=== PATIENT | female | born 1995 | race Hispanic/Latino ===

== ENCOUNTER 2020-04-24 10:46 | Emergency (ER) | payer SELFPAY ==
[~2020-04-24] VITALS: Ht 147.3 cm; Wt 56.7 kg
--- NOTE | 2020-04-24 11:21 | Diagnostic Imaging Report ---
X-ray chest PA and lateral History: Cough and chest pain Comparison: None Findings: Cardiomediastinal silhouettes, central airways, lung garcia, pleura, diaphragms, visualized skeleton, extrathoracic soft tissues and upper abdomen are all unremarkable. Impression: Normal exam. Signed by: Aston Gorman MD on 04/24/2020 11:18 AM
[2020-04-24] MEDS ORDERED: KETOROLAC TROMETHAMINE 60 MG/2 ML VIAL IM ONE (11:30)
[2020-04-24] MEDS ORDERED: KETOROLAC TROMETHAMINE 60 MG/2 ML VIAL ONE (11:42)
--- NOTE | 2020-04-24 11:51 | Emergency Department Note ---
History of Present Illnes History of Present Illness Chief Complaint: Chest Pain History of Present Illness This is a 25 year old female. was doing well until 4 days ago then dry cough/wheezing, st, then cp/back pain when coughing Historian: Patient Arrival Mode: Car History limited by: condition of the patient (normal) Director Of User Experience Required: No Onset (how long ago): month(s) Location: cp Quality: sharp Radiation: Reports non-radiation Severity: moderate Onset quality: gradual Duration (how long): hour(s) (5) Timing of current episode: constant Progression: worsening Chronicity: new Context: Reports recent illness; Denies recent surgery, Denies recent immobilization, Denies recent travel, Denies trauma/injury, Denies new medications, Denies hx of DVT/PE, Denies non- compliance w/ medications Relieving factors: none Exacerbating factors: none Associated symptoms: Reports denies other symptoms Treatments prior to arrival: none Past Medical/Family History Physician Review I have reviewed the patient's past medical and family history. Any updates have been documented here. Past Medical History Recent Fever: No Clinical Suspicion of Infectio: No New/Unexplained Change in Ment: No Past Medical History: None Past Surgical History: None Social History Smoking Cessation: Never Smoker Counseling Performed: No Alcohol Use: None Any Illegal Drug Use: No TB Exposure/Symptoms: No Physically hurt or threatened: No Family History Family history of heart diseas: No Other Last Tetanus: utd Any Pre-Existing Lines (PICC,: No Is patient up to date on immun: Yes Last Flu: no Last Pneumovax: no Review of Systems Review of Systems Constitutional: Reports no symptoms EENTM: Reports as per HPI, Reports throat pain Cardiovascular: Reports as per HPI, Reports chest pain Respiratory: Reports as per HPI, Reports cough, Reports wheezing (forced expiratory) Gastrointestinal: Reports no symptoms Genitourinary: Reports no symptoms Musculoskeletal: Reports as per HPI, Reports back pain Integumentary: Reports no symptoms Neurological: Reports no symptoms Psychological: Reports no symptoms Endocrine: Reports no symptoms Hematological/Lymphatic: Reports no symptoms Review of other systems: All other systems negative Physical Exam Related Data Allergies: Coded Allergies: No Known Allergies (Unverified , 05/20/12) Triage Vital Signs Vital Signs Date Time Temp Pulse Resp B/P (MAP) Pulse Ox O2 Delivery O2 Flow Rate FiO2 04/24/20 11:02 98.3 102 18 126/73 99 Vital signs reviewed: Yes Physical Exam CONSTITUTIONAL Constitutional: Present well-developed, Present well-nourished HENT HENT: Present normocephalic, Present atraumatic, Present nose normal, Present erythema HENT L/R: Present left ext ear normal, Present right ext ear normal EYES Eyes: Reports PERRL, Reports conjunctivae normal NECK Neck: Present ROM normal, Present supple PULMONARY Pulmonary: Present effort normal, Present other (forced expiratory wheezes) CARDIOVASCULAR Cardiovascular: Present regular rhythm, Present heart sounds normal, Present capillary refill normal, Present normal rate GASTROINTESTINAL Abdominal: Present soft, Present nontender, Present bowel sounds normal GENITOURINARY Genitourinary: Present exam deferred SKIN Skin: Present warm, Present dry MUSCULOSKELETAL Musculoskeletal: Present ROM normal NEUROLOGICAL Neurological: Present alert, Present oriented x 3, Present no gross motor or sensory deficits PSYCHOLOGICAL Psychological: Present mood/affect normal, Present judgement normal Assessment & Plan Assessment & Plan Final Impression: (1) Muscle strain (2) Reactive airway disease (3) Acute bronchitis (4) Acute pharyngitis Depart Disposition: HOME, SELF-CARE Last Vital Signs Date Time Temp Pulse Resp B/P (MAP) Pulse Ox O2 Delivery O2 Flow Rate FiO2 04/24/20 11:02 98.3 102 18 126/73 99 Home Meds Active Scripts D-Methorphan Hb/P-Epd Hcl/Bpm (BROMFED DM COUGH SYRUP) 118 Ml Syrup, 10 ML PO Q4HR PRN for COUGH, #240 ML PRN COUGH(USE ALBUTEROL FIRST), CONGESTION, ALLERGY SYMPTOMS Prov:ERICSOURAVHORACIO DUNBAR 04/24/20 Cefdinir (OMNICEF) 300 Mg Capsule, 300 MG PO Q12H, #20 CAP Prov:SOURAV REYES 04/24/20 Azithromycin (AZITHROMYCIN) 500 Mg Tablet, 500 TAB PO DAILY, #5 TAB Prov:SOURAV REYES 04/24/20 Prednisone (PREDNISONE) 20 Mg Tab, 60 MG PO DAILY, #18 TAB Prov:SOURAV REYES 04/24/20 Albuterol Sulf* (PROAIR HFA INHALER*) 8.5 Gm Inh, 2 INH PO Q4HR PRN for COUGH, #1 INH PRN COUGH, WHEEZING, SHORTNESS OF BREATH. DISPENSE WITH SPACER Prov:SOURAV REYES 04/24/20 Albuterol Sulfate (ALBUTEROL SULFATE) 2.5 Mg/3 Ml Vial.neb, 5 MG INH Q4HR PRN for COUGH, #120 UNIT PRN COUGH, WHEEZING, SHORTNESS OF BREATH) Prov:SOURAV REYES 04/24/20 Medications in the ED Ketorolac Tromethamine 60 mg ONCE ONCE IM ; Start 04/24/20 at 11:30; Stop 04/24/20 at 11:36; Status DC Ketorolac Tromethamine 60 mg STK-MED ONCE .ROUTE ; Start 04/24/20 at 11:42; Stop 04/24/20 at 11:37; Status DC SOURAV REYES Apr 24, 2020 11:51
[2020-04-24] MEDS ORDERED: PROAIR HFA INH8.5 GM PO (12:05)
[2020-04-24] MEDS ORDERED: CEFDINIR300 MG PO (12:05)
[2020-04-24] MEDS ORDERED: AZITHROMYCIN500 MG PO (12:05)
[2020-04-24] MEDS ORDERED: PREDNISONE20 MG PO (12:05)
[2020-04-24] MEDS ORDERED: BROMFED DM COU118 ML PO (12:05)
[2020-04-24] MEDS ORDERED: ALBUTEROL2.5 MG/3 M INH (12:05)
== END 2020-04-24 12:32 | disposition home or self-care (01) ==
LOC: FSED 10:46
DX: R05 Cough (principal); J20.9 Acute bronchitis, unspecified; J02.9 Acute pharyngitis, unspecified; S29.011A Strain of muscle and tendon of front wall of thorax, initial encounter; J45.909 Unspecified asthma, uncomplicated
CPT/HCPCS: 71046; 81025; 99283; J1885